=== PATIENT | female | born 1960 | race Two or more races ===

== ENCOUNTER 2022-08-11 08:42 | Outpatient (REF) | payer OTHER, SELFPAY ==
[2022-08-11 11:33] LABS: Appearance Urine Clear; Color Urine Yellow; Glucose Urine UA Negative (Negative); Leukocyte Esterase Urine Negative (Negative); Nitrite Urine Negative (Negative); UMIC TRIGGER UA YES; Urine Blood Trace (Negative); Urine Ketones Negative (Negative); Urine Protein Negative (Neg-Trace)
[2022-08-11 11:40] LABS: Bacteria Urine None Seen (None Seen); Hyaline Casts Urine 0-2 /LPF (0-2); Squamous Epithelial Cell Urine 0-2 /HPF (0-2); WBC Urine 0-5 /HPF (0-5)
== END 2022-08-11 08:43 | disposition home or self-care (01) ==
LOC: HO.HMGCLDS 08:42
PROVIDERS: Visit Provider Obstetrics & Gynecology Gynecology
DX: R31.9 Hematuria, unspecified (principal)
CPT/HCPCS: 81001; 87086

== ENCOUNTER 2023-07-07 09:03 | Outpatient (REF) | payer OTHER, SELFPAY ==
[2023-07-07 11:57] LABS: MANUAL DIFF FLAG NO
[2023-07-07 12:00] LABS: Basophils Percent Auto 0.6 % (0-2); Eosinophils Absolute Auto 0.1 X10*3/uL (0.0-0.4); Hematocrit 42.2 % (37.0-47.0); Hemoglobin 14.5 g/dl (12.0-16.0); Imm Gran Abs Auto 0.01 X10*3/uL (0.00-0.03); Imm Gran Pct Auto 0.2 % (0.0-0.4); Lymphocytes Absolute Auto 1.7 X10*3/uL (1.2-4.9); Lymphocytes Percent Auto 33.9 % (20-40); Mean Corpuscular HGB Conc 34.4 g/dl (31.0-35.0); Mean Corpuscular Hemoglobin 30.5 pg (27.0-33.0); Mean Corpuscular Volume 88.7 fL (80.0-98.0); Mean Platelet Volume 11.4 fL (9.4-12.3); Monocytes Absolute Auto 0.2 X10*3/uL (0.1-1.2); Monocytes Percent Auto 4.3 % (2-11); Platelet Count 221 X10*3/uL (160-400); Red Blood Count 4.76 X10*6/uL (4.20-5.50); Red Cell Distribution Width 13.2 % (11.0-16.0); White Blood Count 5.1 X10*3/uL (4.8-10.8)
[2023-07-07 12:11] LABS: Estimated Average Glucose 111 mg/dL; Hemoglobin A1c % 5.5 % (<6.0)
[2023-07-07 12:30] LABS: Alanine Aminotransferase 21 U/L (0-31); Anion Gap 11 (12-20); Blood Urea Nitrogen 13 mg/dL (9-16); Calcium 9.3 mg/dL (8.4-10.2); Carbon Dioxide 26 mmol/L (22-29); Chloride 110 mmol/L (96-108); Cholesterol 207 mg/dL (<200); Estimated Glomerular Filt Rate > 60; Glucose Random 99 mg/dL (60-115); HDL Cholesterol 65 mg/dL (>40); LDL Cholesterol Calculated 127 mg/dL (<100); Potassium 4.1 mmol/L (3.3-5.1); Sodium 143 mmol/L (135-145); Triglycerides 77 mg/dL (<150)
[2023-07-07 12:34] LABS: Thyroid Stimulating Hormone 2.05 uIU/mL (0.32-4.0)
== END 2023-07-07 09:04 | disposition home or self-care (01) ==
LOC: HO.HMGCLDS 09:03
PROVIDERS: PCP Nurse Practitioner Family; Visit Provider Nurse Practitioner Family
DX: Z00.00 Encounter for general adult medical examination without abnormal findings (principal); E78.00 Pure hypercholesterolemia, unspecified; Z68.30 Body mass index [BMI] 30.0-30.9, adult; Z13.1 Encounter for screening for diabetes mellitus; Z13.220 Encounter for screening for lipoid disorders
CPT/HCPCS: 36415; 80048; 80061; 83036; 84443; 84460; 85025